=== PATIENT | male | born 1980 | race Hispanic/Latino ===

== ENCOUNTER 2020-11-04 07:14 | Inpatient (IN) | payer OTHER ==
[~2020-11-04] VITALS: Ht 175.3 cm; Wt 134.5 kg
[2020-11-04] MEDS ORDERED: PANTOPRAZOLE 40 MG 10ML VIAL IV STA (07:30)
[2020-11-04] MEDS ORDERED: ONDANSETRON HCL INJ 2MG/ML 2ML 2 MG/ML VIAL IV STA (07:30)
[2020-11-04] MEDS ORDERED: SODIUM CHLORIDE 0.9% 1000ML 1,000 ML IV STA (07:30)
[2020-11-04 08:10] LABS: BASOPHILS % 0.2 % (0.0-1.0); EOSINOPHILS # (AUTO) 0.1 (0.0-0.4); EOSINOPHILS % 0.5 % (0.0-6.0); HEMOGLOBIN 15.1 g/dL (14.0-18.0); LYMPHOCYTES # (AUTO) 2.1 (1.0-3.2); LYMPHOCYTES % 18.2 % (18.0-39.1); MEAN CORPUSCULAR HEMOGLOBIN 28.3 pg (28-32); MEAN CORPUSCULAR HGB CONC 33.6 g/dL (31-35); MEAN CORPUSCULAR VOLUME 84.3 fL (81-99); MONOCYTES # (AUTO) 0.6 (0.2-0.8); MONOCYTES % 5.5 % (4.4-11.3); NEUTROPHILS # (AUTO) 8.8 (2.1-6.9); NEUTROPHILS % 75.3 % (38.7-80.0); PLATELET COUNT 244 x10e3/uL (140-360); RED BLOOD COUNT 5.34 x10e6/uL (4.3-5.7); RED CELL DISTRIBUTION WIDTH 12.7 % (11.7-14.4)
[2020-11-04 08:21] LABS: CLARITY,URINE CLEAR (CLEAR); COLOR,URINE YELLOW (YELLOW); KETONES,URINE TRACE (NEGATIVE); LEUKOCYTE ESTERASE ,URINE NEGATIVE (NEGATIVE); NITRITE,URINE NEGATIVE (NEGATIVE); PROTEIN,URINE DIPSTICK 2+ (NEGATIVE); URINE UROBILINOGEN 0.2 mg/dL (0.2 - 1)
[2020-11-04 08:35] LABS: ALANINE AMINOTRANSFERASE 19 IU/L (0-55); ALBUMIN 3.8 g/dL (3.5-5.0); ALBUMIN/GLOBULIN RATIO 0.9 (0.8-2.0); ALKALINE PHOSPHATASE 43 IU/L (40-150); AMYLASE 189 U/L (25-125); ANION GAP 13.8 mmol/L (8-16); BLOOD UREA NITROGEN 12 mg/dL (7-26); BUN/CREATININE RATIO 22 (6-25); CALCIUM 9.1 mg/dL (8.4-10.2); CARBON DIOXIDE 23 mmol/L (22-29); CHLORIDE 104 mmol/L (98-107); CREATINE KINASE 84 IU/L (30-200); CREATININE, SERUM 0.54 mg/dL (0.72-1.25); EST GLOMERULAR FILTRATION RATE > 60 ML/MIN (60-); GLUCOSE 108 mg/dL (74-118); LIPASE 14 U/L (8-78); POTASSIUM 3.8 mmol/L (3.5-5.1); SODIUM 137 mmol/L (136-145)
[2020-11-04 08:41] LABS: BACTERIA,URINE MODERATE /HPF; EPITHELIAL CELLS,URINE FEW /LPF; MUCUS,URINE MANY (RARE)
[2020-11-04] MEDS ORDERED: CEFTRIAXONE SOD 1 GM/NS 50 ML 50 ML IV ONE (09:15)
[2020-11-04] MEDS: PIPER-TAZ 3.375 GM 50 ML IV SCH ×3 (09:42→21:33)
[2020-11-04 09:44] LABS: INR 0.99; PROTHROMBIN TIME 13.6 seconds (11.9-14.5)
[2020-11-04] MEDS ORDERED: OLMESARTAN MEDO40 MG PO (09:50)
[2020-11-04] MEDS ORDERED: METOPROLOL TART50 MG PO (09:50)
[2020-11-04] MEDS ORDERED: ATORVASTATIN CA40 MG PO (09:50)
[2020-11-04] MEDS ORDERED: HYDRALAZINE HCL50 MG PO (09:50)
[2020-11-04] MEDS ORDERED: SODIUM CHLORIDE 0.9% 50ML 50 ML ONE (09:54)
[2020-11-04] MEDS ORDERED: IOPAMIDOL 370 MG/ML 200 ML INFUS..BTL INJ ONE (09:55)
[2020-11-04] MEDS ORDERED: MORPHINE SULFATE INJ 4 MG/ML INJ 1ML IV PRN (10:00)
[2020-11-04] MEDS ORDERED: ONDANSETRON HCL INJ 2MG/ML 2ML 2 MG/ML VIAL IV PRN (10:00)
[2020-11-04] MEDS: D5.45%NS/KCL 20MEQ 1,000 ML IV SCH ×2 (11:19→16:14)
[2020-11-04] MEDS: METRONIDAZOLE 500MG/NS 100ML 100 ML IV SCH ×2 (11:20→17:38)
[2020-11-04 15:30] VITALS: BP 150/90
[2020-11-04 15:42] VITALS: BP 131/69
[2020-11-04] MEDS ORDERED: ACETAMINOPHEN 325 MG SUPP PR PRN (16:30)
[2020-11-04] MEDS ORDERED: HYDRALAZINE HCL 20 MG/ML VIAL IV PRN (16:30)
[2020-11-04] MEDS: FAMOTIDINE 20 MG/2 ML VIAL IV SCH (17:38)
[2020-11-04 21:22] VITALS: BP 131/66
[2020-11-04 21:37] VITALS: BP 131/66
[2020-11-05] VITALS (7 sets, daily range): BP systolic 113–126; BP diastolic 71–76
[2020-11-05] MEDS: PIPER-TAZ 3.375 GM 50 ML IV SCH ×4 (03:28→21:08)
[2020-11-05] MEDS: D5.45%NS/KCL 20MEQ 1,000 ML IV SCH ×3 (03:28→17:43)
[2020-11-05] MEDS: METRONIDAZOLE 500MG/NS 100ML 100 ML IV SCH ×4 (05:55→17:43)
[2020-11-05 06:09] LABS: BASOPHILS % 0.2 % (0.0-1.0); EOSINOPHILS % 0.3 % (0.0-6.0); HEMATOCRIT 40.9 % (38.2-49.6); HEMOGLOBIN 13.5 g/dL (14.0-18.0); LYMPHOCYTES # (AUTO) 1.6 (1.0-3.2); LYMPHOCYTES % 12.6 % (18.0-39.1); MEAN CORPUSCULAR HEMOGLOBIN 28.4 pg (28-32); MEAN CORPUSCULAR VOLUME 85.9 fL (81-99); MONOCYTES # (AUTO) 0.9 (0.2-0.8); MONOCYTES % 7.3 % (4.4-11.3); NEUTROPHILS # (AUTO) 9.7 (2.1-6.9); NEUTROPHILS % 79.1 % (38.7-80.0); PLATELET COUNT 204 x10e3/uL (140-360); RED BLOOD COUNT 4.76 x10e6/uL (4.3-5.7); RED CELL DISTRIBUTION WIDTH 12.5 % (11.7-14.4)
[2020-11-05 06:25] LABS: ALANINE AMINOTRANSFERASE 14 IU/L (0-55); ALBUMIN 3.1 g/dL (3.5-5.0); ALBUMIN/GLOBULIN RATIO 0.7 (0.8-2.0); ALKALINE PHOSPHATASE 56 IU/L (40-150); AMYLASE 62 U/L (25-125); ANION GAP 14.3 mmol/L (8-16); BLOOD UREA NITROGEN 7 mg/dL (7-26); BUN/CREATININE RATIO 8 (6-25); CALCIUM 8.9 mg/dL (8.4-10.2); CARBON DIOXIDE 24 mmol/L (22-29); CHLORIDE 104 mmol/L (98-107); CREATININE, SERUM 0.85 mg/dL (0.72-1.25); EST GLOMERULAR FILTRATION RATE > 60 ML/MIN (60-); GLUCOSE 111 mg/dL (74-118); LIPASE 8 U/L (8-78); POTASSIUM 4.3 mmol/L (3.5-5.1); SODIUM 138 mmol/L (136-145)
[2020-11-05 06:35] LABS: CHOL/HDL RATIO 3.3 (3.9-4.7); MAGNESIUM 2.1 MG/DL (1.3-2.1); PHOSPHORUS 2.7 MG/DL (2.3-4.7)
[2020-11-05 06:56] LABS: THYROID STIMULATING HORMONE 1.39 uIU/mL (0.350-4.940)
[2020-11-05] MEDS ORDERED: ACETAMINOPHEN 325 MG TAB PO PRN (09:15)
[2020-11-05] MEDS ORDERED: ONDANSETRON HCL INJ 2MG/ML 2ML 2 MG/ML VIAL IV PRN (09:15)
[2020-11-05] MEDS: METOPROLOL TARTRATE 50 MG TAB PO SCH (10:09)
[2020-11-05] MEDS: FAMOTIDINE 20 MG/2 ML VIAL IV SCH ×2 (10:11→16:00)
[2020-11-05] MEDS: ATORVASTATIN 40 MG TAB PO SCH (21:08)
[2020-11-06] VITALS (8 sets, daily range): BP systolic 106–144; BP diastolic 66–75
[2020-11-06] MEDS: METRONIDAZOLE 500MG/NS 100ML 100 ML IV SCH ×5 (00:10→23:32)
[2020-11-06] MEDS: D5.45%NS/KCL 20MEQ 1,000 ML IV SCH (00:11)
[2020-11-06] MEDS: PIPER-TAZ 3.375 GM 50 ML IV SCH ×4 (03:31→23:32)
[2020-11-06 05:27] LABS: BASOPHILS % 0.2 % (0.0-1.0); EOSINOPHILS # (AUTO) 0.1 (0.0-0.4); EOSINOPHILS % 0.9 % (0.0-6.0); HEMATOCRIT 39.8 % (38.2-49.6); HEMOGLOBIN 13.2 g/dL (14.0-18.0); LYMPHOCYTES # (AUTO) 1.7 (1.0-3.2); MEAN CORPUSCULAR HEMOGLOBIN 28.1 pg (28-32); MEAN CORPUSCULAR HGB CONC 33.2 g/dL (31-35); MEAN CORPUSCULAR VOLUME 84.9 fL (81-99); MONOCYTES # (AUTO) 0.8 (0.2-0.8); MONOCYTES % 7.5 % (4.4-11.3); NEUTROPHILS # (AUTO) 8.4 (2.1-6.9); NEUTROPHILS % 75.9 % (38.7-80.0); PLATELET COUNT 210 x10e3/uL (140-360); RED BLOOD COUNT 4.69 x10e6/uL (4.3-5.7); RED CELL DISTRIBUTION WIDTH 12.4 % (11.7-14.4)
[2020-11-06 05:55] LABS: ALANINE AMINOTRANSFERASE 18 IU/L (0-55); ALBUMIN 3.1 g/dL (3.5-5.0); ALBUMIN/GLOBULIN RATIO 0.7 (0.8-2.0); ALKALINE PHOSPHATASE 54 IU/L (40-150); ANION GAP 14.4 mmol/L (8-16); BLOOD UREA NITROGEN 8 mg/dL (7-26); BUN/CREATININE RATIO 8 (6-25); CALCIUM 8.9 mg/dL (8.4-10.2); CARBON DIOXIDE 25 mmol/L (22-29); CHLORIDE 104 mmol/L (98-107); CREATININE, SERUM 0.96 mg/dL (0.72-1.25); EST GLOMERULAR FILTRATION RATE > 60 ML/MIN (60-); GLUCOSE 99 mg/dL (74-118); POTASSIUM 4.4 mmol/L (3.5-5.1); SODIUM 139 mmol/L (136-145)
[2020-11-06] MEDS: METOPROLOL TARTRATE 50 MG TAB PO SCH (08:59)
[2020-11-06] MEDS: FAMOTIDINE 20 MG/2 ML VIAL IV SCH ×2 (08:59→16:02)
[2020-11-06] MEDS: ATORVASTATIN 40 MG TAB PO SCH (23:32)
[2020-11-07] VITALS (7 sets, daily range): BP systolic 117–135; BP diastolic 70–86
[2020-11-07] MEDS: PIPER-TAZ 3.375 GM 50 ML IV SCH ×3 (03:59→17:02)
[2020-11-07] MEDS: METRONIDAZOLE 500MG/NS 100ML 100 ML IV SCH ×2 (05:08→12:30)
[2020-11-07 05:31] LABS: BASOPHILS % 0.3 % (0.0-1.0); EOSINOPHILS # (AUTO) 0.1 (0.0-0.4); EOSINOPHILS % 1.4 % (0.0-6.0); HEMATOCRIT 41.6 % (38.2-49.6); HEMOGLOBIN 14.1 g/dL (14.0-18.0); LYMPHOCYTES # (AUTO) 1.8 (1.0-3.2); LYMPHOCYTES % 17.9 % (18.0-39.1); MEAN CORPUSCULAR HGB CONC 33.9 g/dL (31-35); MEAN CORPUSCULAR VOLUME 85.4 fL (81-99); MONOCYTES # (AUTO) 0.7 (0.2-0.8); MONOCYTES % 7.1 % (4.4-11.3); NEUTROPHILS # (AUTO) 7.3 (2.1-6.9); NEUTROPHILS % 72.9 % (38.7-80.0); PLATELET COUNT 241 x10e3/uL (140-360); RED BLOOD COUNT 4.87 x10e6/uL (4.3-5.7); RED CELL DISTRIBUTION WIDTH 12.2 % (11.7-14.4)
[2020-11-07 05:57] LABS: ALANINE AMINOTRANSFERASE 22 IU/L (0-55); ALBUMIN 3.1 g/dL (3.5-5.0); ALBUMIN/GLOBULIN RATIO 0.7 (0.8-2.0); ALKALINE PHOSPHATASE 54 IU/L (40-150); ANION GAP 13.3 mmol/L (8-16); BLOOD UREA NITROGEN 11 mg/dL (7-26); BUN/CREATININE RATIO 11 (6-25); CALCIUM 9.2 mg/dL (8.4-10.2); CARBON DIOXIDE 25 mmol/L (22-29); CHLORIDE 104 mmol/L (98-107); CREATININE, SERUM 0.96 mg/dL (0.72-1.25); EST GLOMERULAR FILTRATION RATE > 60 ML/MIN (60-); GLUCOSE 90 mg/dL (74-118); POTASSIUM 4.3 mmol/L (3.5-5.1); SODIUM 138 mmol/L (136-145)
[2020-11-07] MEDS ORDERED: METRONIDAZOLE500 MG PO (08:24)
[2020-11-07] MEDS ORDERED: TYLENOL # 31 EA PO (08:24)
[2020-11-07] MEDS: FAMOTIDINE 20 MG/2 ML VIAL IV SCH (08:54)
[2020-11-07] MEDS: METOPROLOL TARTRATE 50 MG TAB PO SCH (08:55)
[2020-11-07] MEDS ORDERED: ONDANSETRON HCL 4 MG ORAL DISINTEGRATING TAB PO PRN (09:45)
== END 2020-11-07 16:55 | disposition home or self-care (01) | DRG 392 ==
LOC: ER 07:38 → ERHOLD 09:55 → MED/SURG 14:36
PROVIDERS: ADMIT Internal Medicine; ATTEND Internal Medicine
DX: K57.20 Diverticulitis of large intestine with perforation and abscess without bleeding (principal); N39.0 Urinary tract infection, site not specified; Z68.42 Body mass index [BMI] 45.0-49.9, adult; R19.7 Diarrhea, unspecified; K80.20 Calculus of gallbladder without cholecystitis without obstruction; I10 Essential (primary) hypertension; E78.5 Hyperlipidemia, unspecified; E66.01 Morbid (severe) obesity due to excess calories; F17.210 Nicotine dependence, cigarettes, uncomplicated; Z86.79 Personal history of other diseases of the circulatory system; Z20.828 Contact with and (suspected) exposure to other viral communicable diseases
CPT/HCPCS: 36415; 74177; 76705; 80053; 80061; 81001; 82150; 82550; 82553; 83036; 83690; 83735; 84100; 84443; 84484; 85025; 85610; 85730; 87086; 96361; 99284; J2270; J2405; J2543; J7030; Q9967; U0002

== ENCOUNTER 2023-04-06 17:39 | Emergency (ER) | payer OTHER ==
[~2023-04-06] VITALS: Ht 175.3 cm; Wt 142.9 kg
[~2023-04-06 17:39] MED LIST: ATORVASTATIN CA40 MG PO; HYDRALAZINE HCL50 MG PO; METOPROLOL TART50 MG PO; METRONIDAZOLE500 MG PO; OLMESARTAN MEDO40 MG PO; TYLENOL # 31 EA PO
[2023-04-06] MEDS ORDERED: FAMOTIDINE 20 MG/2 ML VIAL IV STA (17:54)
[2023-04-06] MEDS ORDERED: ONDANSETRON HCL INJ 2MG/ML 2ML 2 MG/ML VIAL IV STA (17:54)
[2023-04-06] MEDS ORDERED: KETOROLAC TROMETHAMINE 30 MG/ML VIAL IV STA (17:54)
[2023-04-06] MEDS ORDERED: METOPROLOL SUCCINATE 50 MG TAB XL PO ONE (18:00)
[2023-04-06] MEDS ORDERED: DONNATAL/LIDOCAINE/MAALOX 30 ML SUSP PO ONE (18:00)
[2023-04-06] MEDS ORDERED: METOPROLOL TARTRATE 50 MG TAB ONE (18:13)
[2023-04-06] MEDS ORDERED: FAMOTIDINE 20 MG/2 ML VIAL IV ONE (18:14)
[2023-04-06] MEDS ORDERED: LIDOCAINE VISC 2% SOLN 15 ML UDC ONE (18:14)
[2023-04-06] MEDS ORDERED: MAGNESIUM/ALUMINUM/SIMETHICONE 30 ML UDC ONE (18:14)
[2023-04-06] MEDS ORDERED: ONDANSETRON HCL INJ 2MG/ML 2ML 2 MG/ML VIAL ONE (18:14)
[2023-04-06] MEDS ORDERED: KETOROLAC TROMETHAMINE 30 MG/ML VIAL ONE (18:29)
[2023-04-06] MEDS ORDERED: METOPROLOL TARTRATE 50 MG TAB PO ONE (18:30)
[2023-04-06] MEDS ORDERED: DICYCLOMINE HCL20 MG PO (19:11)
[2023-04-06] MEDS ORDERED: ONDANSETRON ODT4 MG PO (19:11)
[2023-04-06 19:52] VITALS: BP 110/67; PULSE 59; RESP 22; TEMP 99.2; O2SAT 96
== END 2023-04-06 19:52 | disposition home or self-care (01) ==
LOC: FSED 17:52
DX: R10.11 Right upper quadrant pain (principal); K80.20 Calculus of gallbladder without cholecystitis without obstruction; R11.0 Nausea; I10 Essential (primary) hypertension; E78.5 Hyperlipidemia, unspecified; R94.31 Abnormal electrocardiogram [ECG] [EKG]
CPT/HCPCS: 76705; 80048; 80076; 81003; 82553; 84484; 85025; 93005; 99284; J1885; J2405

== ENCOUNTER 2024-07-02 08:59 | Emergency (ER) | payer OTHER ==
[~2024-07-02] VITALS: Ht 175.3 cm; Wt 142.1 kg
[~2024-07-02 08:59] MED LIST changes: +DICYCLOMINE HCL20 MG PO; +ONDANSETRON ODT4 MG PO
[2024-07-02 09:21] VITALS: TEMP 97.7
[2024-07-02] MEDS: FAMOTIDINE 20 MG/2 ML VIAL IV STA (10:43)
[2024-07-02 10:44] VITALS: BP 168/84
[2024-07-02] MEDS: HYDRALAZINE HCL 20 MG/ML VIAL IV ONE (10:44)
[2024-07-02] MEDS: ALBUTEROL/IPRATROPIUM 3 ML NEB NEB ONE (10:44)
[2024-07-02 10:59] VITALS: PULSE 70; RESP 18
[2024-07-02] MEDS: ASPIRIN 81 MG CHEW TAB PO STA (11:38)
[2024-07-02] MEDS ORDERED: VENTOLIN HFA18 GM INH (12:09)
[2024-07-02] MEDS ORDERED: PEPCID20 MG PO (12:09)
[2024-07-02 12:16] VITALS: PULSE 69; RESP 16; O2SAT 98
[2024-07-02] MEDS ORDERED: OLMESARTAN MEDO20 MG (13:27)
[2024-07-02] MEDS ORDERED: NEXIUM40 MG PO (13:27)
== END 2024-07-02 12:28 | disposition home or self-care (01) ==
LOC: FSED 09:22
DX: R06.00 Dyspnea, unspecified (principal); R07.89 Other chest pain; I10 Essential (primary) hypertension; E78.5 Hyperlipidemia, unspecified; Z11.52 Encounter for screening for COVID-19; R94.31 Abnormal electrocardiogram [ECG] [EKG]; Z86.69 Personal history of other diseases of the nervous system and sense organs
CPT/HCPCS: 0223U; 70450; 71046; 80053; 80307; 81003; 82553; 84484; 85025; 85379; 87400; 93005; 96374; 96375; 99284; J0360